=== PATIENT | female | born 1985 | race Caucasian/White ===

== ENCOUNTER 2021-03-21 11:49 | Emergency (ER) | payer OTHER ==
[~2021-03-21] VITALS: Ht 154.9 cm; Wt 65.0 kg
[2021-03-21 11:55] VITALS: BP 145/63
--- NOTE | 2021-03-21 12:49 | PHYS DOC ---
Past History Past Medical History: Asthma (GILMER RUEDA APRN) Past Surgical History: (GILMER RUEDA APRN) Alcohol Use: None (GILMER RUEDA APRN) General Adult EDM: Chief Complaint: VAGINAL BLEEDING HPI: HPI: Patient is a 35-year-old female presents with vaginal bleeding and . Patient's last menstrual period was 02/13. Patient reports cramping and clotting. Patient reports pain is worse on the right side and radiating into her right shoulder. Patient is G5, P1. Patient denies medical history. (GILMER RUEDA APRN) Review of Systems: Review of Systems: Constitutional: Denies fever or chills Eyes: Denies change in visual acuity HENT: Denies nasal congestion or sore throat Respiratory: Denies cough or shortness of breath Cardiovascular: Denies chest pain or edema GI: Reports right lower abdominal pain, denies nausea, vomiting, bloody stools or diarrhea /Vaginal: Denies dysuria, reports vaginal bleeding and clotting Musculoskeletal: Denies back pain or joint pain Integument: Denies rash Neurologic: Denies headache, focal weakness or sensory changes Endocrine: Denies polyuria or polydipsia Lymphatic: Denies swollen glands Psychiatric: Denies depression or anxiety (GILMER RUEDA APRN) Physical Exam: PE: Constitutional: Well developed, well nourished, no acute distress, non-toxic appearance. [] HENT: Normocephalic, atraumatic, bilateral external ears normal, oropharynx moist, no oral exudates, nose normal. [] Eyes: PERRLA, EOMI, conjunctiva normal, no discharge. [] Neck: Normal range of motion, no tenderness, supple, no stridor. [] Cardiovascular:Heart rate regular rhythm, no murmur [] Lungs & Thorax: Bilateral breath sounds clear to auscultation [] Abdomen: Bowel sounds normal, soft, right-sided tenderness Skin: Warm, dry, no erythema, no rash. [] Back: No tenderness, no CVA tenderness. [] Extremities: No tenderness, no cyanosis, no clubbing, ROM intact, no edema. [] Neurologic: Alert and oriented X 3, normal motor function, normal sensory function, no focal deficits noted. [] Psychologic: Affect normal, judgement normal, mood normal. [] (GILMER RUEDA APRN) Current Patient Data: Labs: Laboratory Tests Test 03/21/21 12:25 POC Urine HCG, Qualitative hcg negative (Negative) Vital Signs: Vital Signs Date Time Temp Pulse Resp B/P (MAP) Pulse Ox O2 Delivery O2 Flow Rate FiO2 03/21/21 11:55 98.3 65 18 145/63 (90) 96 Room Air (GILMER RUEDA APRN) EKG: EKG: [] (GILMER RUEDA APRN) Radiology/Procedures: Radiology/Procedures: []Study: CT abdomen/pelvis with intravenous contrast Indication: Lower abdominal pain. Comparison: None. Technique: Helical CT imaging performed of the abdomen and pelvis after the intravenous administration of 75 cc Omnipaque 300 contrast. Sagittal and coronal reformats were obtained. One or more of the following individualized dose reduction techniques were u tilized for this examination: 1. Automated exposure control 2. Adjustment of the mA and/or kV according to patient size 3. Use of iterative reconstruction technique. Findings: No significant abnormality at the lower chest. Several subcentimeter hypoattenuating foci within the liver which are statistically most likely benign in the absence of a known malignancy. Within normal limits gallbladder, biliary tree, pancreas, spleen and adrenal glands. Splenule noted just above the left adrenal gland, image 40 series 3. Millimetric hypoattenuating focus at the left kidney upper pole does not meet criteria for dedicated follow-up. No hydronephrosis. Unremarkable urinary bladder. Within normal limits endometrium and uterine parenchyma for patient age. No adnexal mass. Mild volume colonic stool burden. No localized pericolonic inflammation or concerning wall thickening noting that the sigmoid and rectum are collapsed. Normal appendix, image 24 series 3. Nonobstructed small bowel. Unremarkable stomach. Within normal limits major vasculature. No lymphadenopathy. No free fluid or pneumoperitoneum. No complex body wall hernia. A few benign sclerotic foci within the pelvis. No acute or aggressive osseous abnormality. Impression: No acute abnormality seen throughout the abdomen or pelvis. In the setting of reported lower abdominal pain the appendix is normal and the reproductive organs within normal limits for patient age. Electronically signed by: ANDREE AARON MD (03/21/2021 3:44 PM) [facility] (GILMER RUEDA APRN) Heart Score: C/O Chest Pain: No Risk Factors: Risk Factors: DM, Current or recent (<one month) smoker, HTN, HLP, family history of CAD, obesity. Risk Scores: Score 0 - 3: 2.5% MACE over next 6 weeks - Discharge Home Score 4 - 6: 20.3% MACE over next 6 weeks - Admit for Clinical Observation Score 7 - 10: 72.7% MACE over next 6 weeks - Early Invasive Strategies (GILMER RUEDA APRN) Course & Med Decision Making: Course & Med Decision Making Pertinent Labs and Imaging studies reviewed. (See chart for details) [] 35-year-old female presents with vaginal bleeding during . Patient reports that bleeding started in the overnight. Patient is having right lower abdominal pain that radiates into her right shoulder. Patient is G5, P1. Last menstrual period was 02/13. Urine was negative. Ordered quant hCG, CBC. Patient is hemodynamically stable. Quant hCG was 4. All other labs unremarkable. Urine negative for infection. Patient most likely had a miscarriage. No evidence of . CT of abdomen and pelvis ordered due to lower abdominal pain. CT of abdomen pelvis was negative for any acute abnormalities. Instructed patient to return to emergency room if bleeding becomes worse. Otherwise need to follow-up with PCP. Ibuprofen and Tylenol at home for discomfort. Patient is patient of and okay with discharge plan. (GILMER RUEDA APRN) Dragon Disclaimer: Dragon Disclaimer: This electronic medical record was generated, in whole or in part, using a voice recognition dictation system. (GILMER RUEDA APRN) Attending Co-Sign The patient was seen and interviewed as well as examined at the bedside. The chart was reviewed. The case was discussed. Agree with the plan of care. (THERESA WILL DO) Departure Departure: Impression: Primary Impression: Vaginal bleeding Disposition: HOME / SELF CARE / HOMELESS Condition: STABLE Referrals: PCP,NO (PCP) Patient Instructions: Abdominal Pain Additional Instructions: You are seen in the emergency room for vaginal bleeding. Your test was negative. Your quant hCG was 4. Your CT of your abdomen was negative for any acute abnormalities. You can take Tylenol and ibuprofen at home for discomfort. Please return to the emergency room with worsening symptoms or concerns. EMERGENCY DEPARTMENT GENERAL DISCHARGE INSTRUCTIONS Thank you for coming to [facility] (ED) today and trusting us with you care. We trust that you had a positivie experience in our Emergency Department. If you wish to speak to the department management, you may call the director at [phone]. YOUR FOLLOW UP INSTRUCTIONS ARE FOLLOWS: 1. Do you have a private Doctor? If you do not have a private doctor, please ask for a resource list of physicians or clinics that may be able to assist you with follow up care. 2. The Emergency Physician has interpreted your x-rays. The X-Ray specialist will also review them. If there is a change in the findings, you will be notified in 48 hours when at all possible. 3. A lab test or culture has been done, your results will be reviewed and you will be notified if you need a change in treatment. ADDITIONAL INSTRUCTIONS AND INFORMATION: 1. Your care today has been supervised by a physician who is specially trained in emergency care. Many problems require more than one evaluation for a complete diagnosis and treatment. We recommend that you schedule your follow up appointment as recommended to ensure complete treatment of you illness or injury. If you are unable to obtain follow up care and continue to have a problem, or if your condition worsens, we recommend that you return to the ED. 2. We are not able to safely determine your condition over the phone nor are we able to give sound medical advice over the phone. For these safety reasons, if you call for medical advice we will ask you to come to the ED for further evaluation. 3. If you have any questions regarding these discharge instructions please call the ED at [phone]. SAFETY INFORMATION: In the interest of safety, wellness, and injury prevention; we encourage you to wear your sealbelt, if you smoke; quite smoking, and we encourage family to use a protective helmet for bicycling and other sporting events that present an increased risk for head injury. IF YOUR SYMPTOMS WORSEN OR NEW SYMPTOMS DEVELOP, OR YOU HAVE CONCERNS ABOUT YOUR CONDITION; OR IF YOUR CONDITION WORSENS WHILE YOU ARE WAITING FOR YOUR FOLLOW UP APPOINTMENT; EITHER CONTACT YOUR PRIMARY CARE DOCTOR, THE PHYSICIAN WHOSE NAME AND NUMBER YOU WERE GIVEN, OR RETURN TO THE ED IMMEDIATELY. GILMER RUEDA APRN March 21, 2021 12:49 THERESA WILL DO Mar 23, 2021 18:33
[2021-03-21 13:05] LABS: BASO % 0 % (0-3); EOS # 0.1 x10^3/uL (0.0-0.7); EOS % 1 % (0-3); HEMATOCRIT 43.2 % (36.0-47.0); HEMOGLOBIN 14.8 g/dL (12.0-15.5); LYMPH # 2.2 x10^3/uL (1.0-4.8); LYMPH % 26 % (24-48); MEAN CORPUSCULAR HEMOGLOBIN 31 pg (25-35); MEAN CORPUSCULAR HGB CONC 34 g/dL (31-37); MEAN CORPUSCULAR VOLUME 90 fL (79-100); MONO # 0.6 x10^3/uL (0.0-1.1); MONO % 7 % (0-9); NEUT # 5.7 x10^3uL (1.8-7.7); NEUT % 66 % (31-73); PLATELET COUNT 267 x10^3/uL (140-400); RED BLOOD COUNT 4.83 x10^6/uL (3.50-5.40); RED CELL DISTRIBUTION WIDTH 12.3 % (11.5-14.5); WHITE BLOOD COUNT 8.6 x10^3/uL (4.0-11.0)
[2021-03-21 13:11] LABS: CREATININE 0.7 mg/dL (0.6-1.0); GFR 95.8; POTASSIUM 3.7 mmol/L (3.5-5.1)
[2021-03-21 13:17] LABS: ALBUMIN 3.7 g/dL (3.4-5.0); ALBUMIN/GLOBULIN RATIO 1.1 (1.0-1.7); TOTAL BILIRUBIN 0.4 mg/dL (0.2-1.0); TOTAL PROTEIN 7.1 g/dL (6.4-8.2)
[2021-03-21 13:22] LABS: BACTERIA,URINE 0 /HPF (0-FEW); BILIRUBIN,URINE NEG (NEG); CLARITY,URINE CLOUDY; COLOR,URINE AMBER; GLUCOSE,URINE NEG (NEG); NITRITE,URINE NEG (NEG); RBC,URINE >40 /HPF (0-2); SQUAMOUS EPITHELIAL CELL,UR FEW /LPF; UROBILINOGEN,URINE 0.2 mg/dL (0.2 mg/dL)
[2021-03-21] MEDS ORDERED: IOHEXOL 300 MG/ML 75 ML VIAL. IV ONE (14:30)
[2021-03-21] MEDS ORDERED: CONTRAST GIVEN. MC PRN (14:45)
--- NOTE | 2021-03-21 15:46 | RAD ---
Study: CT abdomen/pelvis with intravenous contrast Indication: Lower abdominal pain. Comparison: None. Technique: Helical CT imaging performed of the abdomen and pelvis after the intravenous administratio n of 75 cc Omnipaque 300 contrast. Sagittal and coronal reformats were obtained. One or more of the following individualized dose reduction techniques were utilized for this examinat ion: 1. Automated exposure control 2. Adjustment of the mA and/or kV according to patient size 3. Use of iterative reconstruction technique. Findings: No significant abnormality at the lower chest. Several subcentimeter hypoattenuating foci within the liver which are statistically most likely benig n in the absence of a known malignancy. Within normal limits gallbladder, biliary tree, pancreas, spl een and adrenal glands. Splenule noted just above the left adrenal gland, image 40 series 3. Millimetric hypoattenuating focus at the left kidney upper pole does not meet criteria for dedicated follow-up. No hydronephrosis. Unremarkable urinary bladder. Within normal limits endometrium and uterine parenchyma for patient age. No adnexal mass. Mild volume colonic stool burden. No localized pericolonic inflammation or concerning wall thickening noting that the sigmoid and rectum are collapsed. Normal appendix, image 24 series 3. Nonobstructed small bowel. Unremarkable stomach. Within normal limits major vasculature. No lymphadenopathy. No free fluid or pneumoperitoneum. No com plex body wall hernia. A few benign sclerotic foci within the pelvis. No acute or aggressive osseous abnormality. Impression: No acute abnormality seen throughout the abdomen or pelvis. In the setting of reported lower abdomina l pain the appendix is normal and the reproductive organs within normal limits for patient age. Electronically signed by: ANDREE AARON MD (03/21/2021 3:44 PM) [facility]
== END 2021-03-21 16:00 | disposition home or self-care (01) ==
LOC: ER 11:49
DX: N93.9 Abnormal uterine and vaginal bleeding, unspecified (principal); R10.31 Right lower quadrant pain; J45.909 Unspecified asthma, uncomplicated; Z98.890 Other specified postprocedural states
CPT/HCPCS: 36415; 74177; 80053; 81001; 81025; 84702; 85025; 86850; 86900; 86901; 99285